=== PATIENT | female | born 1960 | race Caucasian/White ===

== ENCOUNTER 2018-01-25 15:40 | Emergency (ER) | payer OTHER ==
[2018-01-25 15:50] VITALS: TEMP 97.9; BMI 28.3
[2018-01-25] MEDS ORDERED: SODIUM CHLORIDE 1,000 ML IV STA (16:21)
[2018-01-25] MEDS ORDERED: traMADol HCL 50 MG TABLET PO ONE (16:21)
--- NOTE | 2018-01-25 16:22 | PDOC ---
History of Present Illness - General Chief Complaint: Chest Pain Stated Complaint: LEFT LUNG PAIN Time Seen by Provider: 01/25/18 15:49 History Source: Patient Exam Limitations: No Limitations - History of Present Illness Initial Comments: 01/25/18 18:42 Patient's 57-year-old female past medical history of hyperlipidemia, who presents to the emergency department with 2 days of left-sided chest wall pain. Patient states that initially the pain began in her left wrist and was also a tingling sensation. She states that then radiated up to her arm and jaw and chest. She now states that she feels like someone is stabbing her in the chest. Patient also admits to a cough which she has had for approximately one month and was treated for is a bronchitis. Denies fevers, chills, sore throat, earache , difficulty breathing, shortness of breath, nausea, vomiting, diarrhea, urgency and hematuria. Past History - Travel Traveled outside of the country in the last 30 days: No Close contact w/someone who was outside of country & ill: No - Past Medical History Allergies/Adverse Reactions: Allergies Allergy/AdvReac Type Severity Reaction Status Date / Time ciprofloxacin Allergy Severe cant Unverified 01/25/18 16:30 breathe soy Allergy Mild bloated Unverified 08/03/14 14:30 Home Medications: Ambulatory Orders Cholecalciferol (Vitamin D3) [Vitamin D3] 2,000 unit PO DAILY tablet 11/29/15 Cyclobenzaprine HCl [Flexeril -] 5 mg PO TID PRN #21 tablet 01/25/18 CVA: No COPD: No - Suicide/Smoking/Psychosocial Hx Smoking History: Unknown if ever smoked Number of Cigarettes Smoked Daily: 10 Information on smoking cessation initiated: No 'Breaking Loose' booklet given: 08/17/14 Hx Alcohol Use: No Drug/Substance Use Hx: No Substance Use Type: None Review of Systems - Review of Systems Able to Perform ROS?: Yes Comments:: 01/25/18 18:40 CONSTITUTIONAL: Absent: fever, chills, diaphoresis, generalized weakness, malaise, loss of appetite HEENT: Absent: rhinorrhea, nasal congestion, throat pain, throat swelling, difficulty swallowing, mouth swelling, ear pain, eye pain, visual Changes CARDIOVASCULAR: Present: L sided chest wall pain. Absent: loss of consciousness, palpitations, irregular heart rate, peripheral edema RESPIRATORY: Present: cough Absent: shortness of breath, dyspnea with exertion, orthopnea, wheezing, stridor, hemoptysis GASTROINTESTINAL: Absent: abdominal pain, abdominal distension, nausea, vomiting, diarrhea, constipation, melena, hematochezia GENITOURINARY: Absent: dysuria, frequency, urgency, hesitancy, hematuria, flank pain, genital pain MUSCULOSKELETAL: Absent: myalgia, arthralgia, joint swelling SKIN: Absent: rash, itching, pallor HEMATOLOGIC/IMMUNOLOGIC: Absent: easy bleeding, easy bruising, lymphadenopathy, frequent infections ENDOCRINE: Absent: unexplained weight gain, unexplained weight loss, heat intolerance, cold intolerance NEUROLOGIC: Present: tingling to the L hand Absent: headache, focal weakness, dizziness, unsteady gait, seizure, mental status changes, bladder or bowel incontinence PSYCHIATRIC: Absent: anxiety, depression, suicidal or homicidal ideation, hallucinations. Is the patient limited Slovenian proficient: No *Physical Exam - Vital Signs Last Vital Signs Temp Pulse Resp BP Pulse Ox 97.9 F 65 20 153/78 99 01/25/18 15:47 01/25/18 15:47 01/25/18 15:47 01/25/18 15:47 01/25/18 15:47 - Physical Exam Comments: 01/25/18 18:41 GENERAL: Well developed, well nourished. Awake and alert. No acute distress. HEENT: Normocephalic, atraumatic. PERRLA, EOMI. No conjunctival pallor. Sclera are non- icteric. Moist mucous membranes. Oropharynx is clear. NECK: Supple. Full ROM. No JVD. Carotid pulses 2+ and symmetric, without bruits. No thyromegaly. No lymphadenopathy. CARDIOVASCULAR: Regular rate and rhythm. No murmurs, rubs, or gallops. Distal pulses are 2+ and symmetric. PULMONARY: No evidence of respiratory distress. Lungs clear to auscultation bilaterally. No wheezing, rales or rhonchi. ABDOMINAL: Soft. Non-tender. Non-distended. No rebound or guarding. No organomegaly. Normoactive bowel sounds. MUSCULOSKELETAL Normal range of motion at all joints. No bony deformities or tenderness. No CVA tenderness. EXTREMITIES: No cyanosis. No clubbing. No edema. No calf tenderness. SKIN: Warm and dry. Normal capillary refill. No rashes. No jaundice. NEUROLOGICAL: Alert, awake, appropriate. Cranial nerves 2-12 intact. No deficits to light touch and temperature in face, upper extremities and lower extremities. No motor deficits in the in face, upper extremities and lower extremities. Normoreflexic in the upper and lower extremities. Normal speech. Toes are down- going bilaterally. Gait is normal without ataxia. PSYCHIATRIC: Cooperative. Good eye contact. Appropriate mood and affect. ED Treatment Course - LABORATORY CBC & Chemistry Diagram: 01/25/18 17:00 01/25/18 17:00 Medical Decision Making - Medical Decision Making 01/25/18 18:43 Patient is a 57-year-old female who presents to the emergency department with 2 days of left-sided chest pain. On exam patient with regular rate and rhythm, clear sounding sounds bilaterally. Pain is nonreproducible. Labs ordered EKG ordered chest x-ray ordered. Lab work is grossly unremarkable at this time. Troponin is negative. No leukocytosis, H&H within normal limits. Patient given tramadol earlier for her pain with little relief of her symptoms. Given normal lab work with stabbing chest pain we'll rule out aortic aneurysm at this time. CTA ordered. Sign out given to . Patient pending CTA for disposition. EKG: Rate 67 bpm, normal sinus rhythm. Normal intervals, normal axis. No acute ST-T wave changes. *DC/Admit/Observation/Transfer Diagnosis at time of Disposition: Back pain Qualifiers: Back pain location: back pain in unspecified location Chronicity: unspecified Back pain laterality: unspecified Qualified Code(s): M54.9 - Dorsalgia, unspecified Chronic bronchitis Qualifiers: Chronic bronchitis type: simple Qualified Code(s): J41.0 - Simple chronic bronchitis - Discharge Dispostion Disposition: HOME - Prescriptions Prescriptions: Cyclobenzaprine HCl [Flexeril -] 5 mg PO TID PRN #21 tablet PRN Reason: Back Pain - Referrals - Patient Instructions Printed Discharge Instructions: DI for Chronic Bronchitis, DI for Atypical Chest Pain Additional Instructions: Please follow-up with Dr. Claire for further evaluation on Saturday. Return to ER if any return of chest pain, fever, chills, or other concerning symptoms. A prescription has been called to your pharmacy; use medication as needed up to 3 times per day for pain. - Post Discharge Activity
[2018-01-25] MEDS ORDERED: traMADol HCL 50 MG TABLET ONE (16:39)
[2018-01-25 17:09] LABS: BASO % 0.7 % (0-2.0); EOS % 1.5 % (0-4.5); HEMATOCRIT 43.2 % (32.4-45.2); HEMOGLOBIN 14.6 GM/dL (10.7-15.3); LYMPH % 42.8 % (8-40); MCH 31.5 pg (25.7-33.7); MCHC 33.8 g/dl (32.0-36.0); MEAN CELL VOLUME 93.4 fl (80-96); MEAN PLT VOLUME 7.2 fl (7.5-11.1); MONO % 5.9 % (3.8-10.2); NEUT % 49.1 % (42.8-82.8); PLATELET COUNT 276 K/MM3 (134-434); RBC 4.63 M/mm3 (3.60-5.2); RDW 13.7 % (11.6-15.6); WHITE BLOOD COUNT 6.9 K/mm3 (4.0-10.0)
[2018-01-25] MEDS ORDERED: ASPIRIN 81 MG CHEWABLE TABLETS PO ONE (17:21)
[2018-01-25] MEDS ORDERED: morphine CARPU-JECT 4 MG/1 ML DISP.SYRIN IVPUSH ONE (17:23)
[2018-01-25 17:31] LABS: ALBUMIN 3.7 g/dl (3.4-5.0); ANION GAP 6 (8-16); BILIRUBIN,TOTAL 0.4 mg/dL (0.2-1.0); BLOOD UREA NITROGEN 14 mg/dL (7-18); CHLORIDE 113 mmol/L (98-107); CO2 27 mmol/L (21-32); CREATININE 0.6 mg/dL (0.55-1.02); GLUCOSE,RANDOM 102 mg/dL (74-106); MAGNESIUM 2.1 mg/dL (1.8-2.4); POTASSIUM 4.1 mmol/L (3.5-5.1); SGOT/AST 17 U/L (15-37); SGPT/ALT 20 U/L (12-78); SODIUM 146 mmol/L (136-145); TOT PROT 7.4 g/dl (6.4-8.2)
[2018-01-25] MEDS ORDERED: morphine SULFATE 4 MG/ML VIAL ONE (17:31)
[2018-01-25 17:34] LABS: ALK PHOS 111 U/L (45-117); N-TERMINAL BNP 76.73 pg/ml (5-125)
[2018-01-25 18:24] LABS: URINE APPEARANCE CLEAR; URINE BILIRUBIN NEGATIVE (<2.0 mg/dL); URINE COLOR LTYELLOW; URINE GLUCOSE (UA) NEGATIVE (NEGATIVE); URINE KETONE NEGATIVE (NEGATIVE); URINE LEUK ESTERASE NEGATIVE (NEGATIVE); URINE NITRITE NEGATIVE (NEGATIVE); URINE PROTEIN NEGATIVE (NEGATIVE); URINE UROBILINOGEN NEGATIVE mg/dL (0.2-1.0)
[2018-01-25 18:43] LABS: EPI CELLS RARE /HPF (FEW); URINE MUCUS RARE
--- NOTE | 2018-01-25 19:04 | PDOC ---
*Physical Exam - Vital Signs Last Vital Signs Temp Pulse Resp BP Pulse Ox 97.9 F 65 20 153/78 99 01/25/18 15:47 01/25/18 15:47 01/25/18 15:47 01/25/18 15:47 01/25/18 15:47 ED Treatment Course - LABORATORY CBC & Chemistry Diagram: 01/25/18 17:00 01/25/18 17:00 - ADDITIONAL ORDERS Additional order review: Laboratory Results 01/25/18 01/25/18 01/25/18 18:16 18:16 17:00 Sodium Potassium Chloride Carbon Dioxide Anion Gap BUN Creatinine Creat Clearance w eGFR Random Glucose Calcium Magnesium Total Bilirubin AST ALT Alkaline Phosphatase Creatine Kinase 101 Troponin I < 0.02 B-Natriuretic Peptide Total Protein Albumin Urine Color Ltyellow Urine Appearance Clear Urine pH 6.0 Ur Specific [place] 1.016 Urine Protein Negative Urine Glucose (UA) Negative Urine Ketones Negative Urine Blood 1+ H Urine Nitrite Negative Urine Bilirubin Negative Urine Urobilinogen Negative Ur Leukocyte Esterase Negative Urine WBC (Auto) 3 Urine RBC (Auto) 6 Ur Epithelial Cells Rare Urine Mucus Rare Urine HCG, Qual Negative 01/25/18 17:00 Sodium 146 H Potassium 4.1 Chloride 113 H Carbon Dioxide 27 Anion Gap 6 L BUN 14 Creatinine 0.6 Creat Clearance w eGFR > 60 Random Glucose 102 Calcium 9.0 Magnesium 2.1 Total Bilirubin 0.4 AST 17 ALT 20 Alkaline Phosphatase 111 Creatine Kinase Troponin I B-Natriuretic Peptide 76.73 Total Protein 7.4 Albumin 3.7 Urine Color Urine Appearance Urine pH Ur Specific [place] Urine Protein Urine Glucose (UA) Urine Ketones Urine Blood Urine Nitrite Urine Bilirubin Urine Urobilinogen Ur Leukocyte Esterase Urine WBC (Auto) Urine RBC (Auto) Ur Epithelial Cells Urine Mucus Urine HCG, Qual 01/25/18 17:00 RBC 4.63 MCV 93.4 MCHC 33.8 RDW 13.7 MPV 7.2 L Neutrophils % 49.1 Lymphocytes % 42.8 H Monocytes % 5.9 Eosinophils % 1.5 Basophils % 0.7 - Medications Given in the ED: ED Medications Discontinued Medications Generic Name Dose Route Start Last Admin Trade Name Freq PRN Reason Stop Dose Admin Sodium Chloride 1,000 mls @ 1,000 mls/hr 01/25/18 16:21 01/25/18 17:00 Normal Saline - IV 07/07/18 17:20 1,000 mls/hr ASDIR STA Administration Morphine Sulfate 4 mg 01/25/18 17:23 01/25/18 17:33 Morphine Injection - IVPUSH 01/25/18 17:24 4 mg ONCE ONE Administration Tramadol HCl 50 mg 01/25/18 16:21 01/25/18 16:43 Ultram - PO 01/25/18 16:22 50 mg ONCE ONE Administration Medical Decision Making - Medical Decision Making 01/25/18 19:03 Signout taken from SHER Nunn for further evaluation. 01/25/18 20:50 Ms. Trinidad is a 57 yo female w/ pmh of HLD who presents for evaluation of 2 days of left sided chest pain and left wrist pain. She describes pain as stabbing and also describes a 1 month cough and recent treatment for bronchitis. Patient was evaluated using CXR (negative), EKG (normal access, normal interval, regular rate, regular rhythm, no st elevations or depressions) , troponins x2 (negative), CTA chest and CTA abdomen / pelvis. CTA chest revealed continued bronchitis without other acute process. Suspect this / muscular strain from coughing to be origin of patient's symptoms. Patient reporting relief from pain with flexeril. Sending Rx to patient's pharmacy and discharging for outpatient f/u with PCP on Saturday. Patient verbalized understanding and agreement and will comply. *DC/Admit/Observation/Transfer Diagnosis at time of Disposition: Back pain Qualifiers: Back pain location: back pain in unspecified location Chronicity: unspecified Back pain laterality: unspecified Qualified Code(s): M54.9 - Dorsalgia, unspecified Chronic bronchitis Qualifiers: Chronic bronchitis type: simple Qualified Code(s): J41.0 - Simple chronic bronchitis - Discharge Dispostion Disposition: HOME - Referrals - Patient Instructions Printed Discharge Instructions: DI for Atypical Chest Pain, DI for Chronic Bronchitis Additional Instructions: Please follow-up with Dr. Claire for further evaluation on Saturday. Return to ER if any return of chest pain, fever, chills, or other concerning symptoms. A prescription has been called to your pharmacy; use medication as needed up to 3 times per day for pain. - Post Discharge Activity
[2018-01-25] MEDS ORDERED: CYCLOBENZAPRINE HCL 5 MG TABLET PO ONE (20:31)
[2018-01-25] MEDS ORDERED: ACETAMINOPHEN 1000 MG/100 ML VIAL (NON FORMULARY) IVPB ONE (20:31)
[2018-01-25] MEDS ORDERED: ACETAMINOPHEN INJECTION 100 ML IVPB ONE (20:38)
[2018-01-25] MEDS ORDERED: CYCLOBENZAPRINE HCL 10 MG TABLET (FP) ONE (20:52)
[2018-01-25 21:35] VITALS: BP 140/71; PULSE 84
[2018-01-25 21:43] LABS: INR 1.09 (0.82-1.09); PROTHROMBIN TIME (PATIENT) 12.3 SEC (9.7-13.0)
--- NOTE | 2018-01-26 10:09 | EKG ---
Test Reason : Blood Pressure : / mmHG Vent. Rate : 067 BPM Atrial Rate : 067 BPM P-R Int : 194 ms QRS Dur : 078 ms QT Int : 432 ms P-R-T Axes : 066 054 062 degrees QTc Int : 456 ms NORMAL SINUS RHYTHM NORMAL ECG NO PREVIOUS ECGS AVAILABLE Confirmed by AURELIO DEGROOT MD ([id number]) on 01/26/2018 10:08:59 AM Referred By: Confirmed By:AURELIO DEGROOT MD
== END 2018-01-25 21:35 | disposition home or self-care (01) ==
LOC: JER 15:40
PROC: 3E0337Z Introduction of Electrolytic and Water Balance Substance into Peripheral Vein, Percutaneous Approach (ICD-10-PCS; principal; 2018-01-25)
PROC: 3E033NZ Introduction of Analgesics, Hypnotics, Sedatives into Peripheral Vein, Percutaneous Approach (ICD-10-PCS; 2018-01-25)
PROC: 3E033NZ Introduction of Analgesics, Hypnotics, Sedatives into Peripheral Vein, Percutaneous Approach (ICD-10-PCS; 2018-01-25)
DX: J41.0 Simple chronic bronchitis (principal); M54.5 Low back pain; M25.531 Pain in right wrist
CPT/HCPCS: 36415; 71045-TC-FY; 71275-TC; 74174-TC; 80053; 81003; 81015; 82550; 83735; 83880; 84484; 84703; 85025; 85610; 87086; 93005; 93010; 99284-25; J0131; J7030